=== PATIENT | male | born 1995 | race Caucasian/White ===

== ENCOUNTER 2022-12-27 23:18 | Emergency (ER) | payer OTHER ==
[2022-12-27] MEDS ORDERED: AZITHROMYCIN 250 MG TABLET PO ONE (23:24)
[2022-12-27] MEDS ORDERED: ALBUTEROL SO4 2.5/IPRATROPIUM 0.5 INH SOL 3 ML VIAL.NEB. NEB ONE ×3 (23:24→23:30)
[2022-12-27] MEDS ORDERED: DEXAMETHASONE 4 MG TABLET (FP) PO ONE (23:24)
[2022-12-27 23:26] VITALS: BP 110/74; PULSE 83; RESP 20; TEMP 99.1; BMI 22.6
[2022-12-27] MEDS ORDERED: AZITHROMYCIN 500 MG TABLET ONE (23:30)
[2022-12-27] MEDS ORDERED: DEXAMETHASONE 4 MG TABLET (FP) ONE (23:30)
== END 2022-12-28 00:29 | disposition home or self-care (01) ==
LOC: FER 23:18
PROC: 3E0F7GC Introduction of Other Therapeutic Substance into Respiratory Tract, Via Natural or Artificial Opening (ICD-10-PCS; principal; 2022-12-27)
DX: J68.3 Other acute and subacute respiratory conditions due to chemicals, gases, fumes and vapors (principal); R09.81 Nasal congestion; Z20.822 Contact with and (suspected) exposure to COVID-19
CPT/HCPCS: 0241U-QW; 71046-TC-FY; 99284-25

== ENCOUNTER 2023-08-31 18:25 | Emergency (ER) | payer OTHER ==
[2023-08-31 18:40] VITALS: BP 126/83; PULSE 83; RESP 16; TEMP 99.2; BMI 24.2
[2023-08-31 19:12] LABS: EPITHELIAL CELLS 0-5 /hpf
[2023-08-31] MEDS ORDERED: CIPROFLOXACIN 500 MG TABLET (RESTRICTED TO ID) PO ONE (20:24)
[2023-08-31] MEDS ORDERED: CIPROFLOXACIN 250 MG TABLET (RESTRICTED TO ID) PO ONE (20:27)
== END 2023-08-31 20:38 | disposition home or self-care (01) ==
LOC: FER 18:25
DX: R31.9 Hematuria, unspecified (principal)
CPT/HCPCS: 81003; 81015; 87086; 99283-25

== ENCOUNTER 2023-09-03 07:51 | Emergency (ER) | payer OTHER ==
[2023-09-03] MEDS: ALBUTEROL SO4 2.5/IPRATROPIUM 0.5 INH SOL 3 ML VIAL.NEB. NEB SCH ×3 (08:00→08:30)
[2023-09-03 08:05] VITALS: BP 122/63; PULSE 105; RESP 18; TEMP 99.8; BMI 24.2
[2023-09-03] MEDS ORDERED: IBUPROFEN 600 MG TABLET (FP) PO ONE ×2 (08:12→08:45)
== END 2023-09-03 09:15 | disposition home or self-care (01) ==
LOC: FER 07:51
PROC: 3E0F7GC Introduction of Other Therapeutic Substance into Respiratory Tract, Via Natural or Artificial Opening (ICD-10-PCS; principal; 2023-09-03)
DX: R05.9 Cough, unspecified (principal); R68.83 Chills (without fever); R06.89 Other abnormalities of breathing; M79.10 Myalgia, unspecified site; R50.9 Fever, unspecified; B34.9 Viral infection, unspecified; Z20.822 Contact with and (suspected) exposure to COVID-19
CPT/HCPCS: 0241U-QW; 99283-25